=== PATIENT | male | born 1985 | race Caucasian/White ===

== ENCOUNTER 2019-07-12 11:58 | Emergency (ER) | payer OTHER ==
[~2019-07-12] VITALS: Ht 180.3 cm; Wt 79.3 kg
[~2019-07-12 11:58] MED LIST: ONDA4TAB14 PO
[2019-07-12 12:20] VITALS: BP 135/84; PULSE 61; RESP 20; Ht 180.3 cm; Wt 79.3 kg
[2019-07-12] MEDS ORDERED: ONDANSETRON (ODT) 4 MG TAB ODT STA (12:51)
== END 2019-07-12 13:38 | disposition home or self-care (01) ==
LOC: FTE 11:58
DX: R11.0 Nausea (principal); Z87.891 Personal history of nicotine dependence
CPT/HCPCS: Z7502; Z7610; 99283

== ENCOUNTER 2019-08-04 13:39 | Emergency (ER) | payer BC, OTHER ==
[~2019-08-04] VITALS: Wt 78.3 kg
[2019-08-04 13:47] VITALS: BP 120/82; PULSE 63; RESP 20
[2019-08-04] MEDS ORDERED: ONDANSETRON (ODT) 4 MG TAB ODT STA (14:41)
== END 2019-08-04 15:16 | disposition home or self-care (01) ==
LOC: FTE 13:39
DX: R11.2 Nausea with vomiting, unspecified (principal); F17.210 Nicotine dependence, cigarettes, uncomplicated
CPT/HCPCS: 81003; Z7502; 99283

== ENCOUNTER 2019-08-10 11:10 | Emergency (ER) | payer BC ==
[~2019-08-10] VITALS: Ht 185.4 cm; Wt 79.0 kg
[~2019-08-10 11:10] MED LIST changes: +ACET500C5 PO; +AZIT250T PO; +BENZ-6 PO; +D-ME473S2 PO; +PSEU60TA81 PO
[2019-08-10 11:14] VITALS: Ht 185.4 cm; Wt 79.0 kg
[2019-08-10] MEDS ORDERED: KETOROLAC 30 MG INJ IV STA (12:41)
[2019-08-10] MEDS ORDERED: SOD CHLORIDE 0.9% 1,000 ML IV STA (12:41)
[2019-08-10] MEDS ORDERED: ONDANSETRON 4 MG INJ IV STA (12:41)
[2019-08-10] MEDS ORDERED: LORAZEPAM 1 MG TAB PO ONE (13:30)
[2019-08-10 15:47] VITALS: BP 129/83; PULSE 65; RESP 18
== END 2019-08-10 15:49 | disposition home or self-care (01) ==
LOC: FTE 11:10
DX: Z01.812 Encounter for preprocedural laboratory examination (principal); F17.210 Nicotine dependence, cigarettes, uncomplicated
CPT/HCPCS: 36415; 80053; 80061; 81003; 82306; 82607; 82728; 83036; 83690; 83735; 84403; 84436; 84479; 84560; 85025; 85651; 86038; 86900; 86901; J7030; Z7502; 99282

== ENCOUNTER 2019-08-20 21:24 | Emergency (ER) | payer BC ==
[~2019-08-20] VITALS: Ht 182.9 cm; Wt 80.3 kg
[2019-08-20 21:28] VITALS: BP 131/85; PULSE 92; RESP 16; Ht 182.9 cm; Wt 80.3 kg
[2019-08-20] MEDS ORDERED: LIDOCAINE/MYLANTA 40 ML BTL PO ONE (23:30)
[2019-08-20] MEDS ORDERED: LORAZEPAM 1 MG TAB PO ONE (23:30)
== END 2019-08-20 23:49 | disposition home or self-care (01) ==
LOC: FTE 21:24
DX: R10.13 Epigastric pain (principal); Z87.891 Personal history of nicotine dependence
CPT/HCPCS: 99282